=== PATIENT | male | born 1980 | race Caucasian/White ===

== ENCOUNTER 2023-02-14 16:07 | Emergency (ER) | payer OTHER ==
[~2023-02-14] VITALS: Ht 182.9 cm; Wt 84.8 kg
== END 2023-02-14 22:06 | disposition left against medical advice (07) ==
LOC: ER 16:07
DX: S00.93XA Contusion of unspecified part of head, initial encounter (principal); W19.XXXA Unspecified fall, initial encounter; Y93.89 Activity, other specified; Y92.89 Other specified places as the place of occurrence of the external cause; Y99.9 Unspecified external cause status; F10.129 Alcohol abuse with intoxication, unspecified